=== PATIENT | male | born 1965 | race Caucasian/White ===

== ENCOUNTER 2021-12-15 09:54 | Inpatient (IN) | payer MEDICAID ==
[~2021-12-15] VITALS: Ht 170.2 cm; Wt 103.4 kg
[2021-12-15] MEDS ORDERED: SODIUM CHLORIDE 0.9% 1000ML BAG (SEPSIS BOLUS) IV SCH (10:45)
[2021-12-15] MEDS ORDERED: PIPERACILLIN/TAZ 3.375G PREMIX 50 ML IV SCH (10:45)
[2021-12-15 10:56] LABS: INR 1.1; PROTHROMBIN TIME 11.9 sec (9.6-11.0)
[2021-12-15 11:14] LABS: HEMATOCRIT. 34.4 % (42.0-52.0); HEMOGLOBIN. 10.1 g/dL (14.0-18.0); MEAN CORPUSCULAR HEMOGLOBIN 28.6 pg (28.0-32.0); MEAN CORPUSCULAR VOLUME 97.8 fL (80.0-94.0); MEAN PLATELET VOLUME 8.9 fl (7.4-10.4); PLATELET 301 x1000/uL (130-400); RED BLOOD CELL COUNT 3.51 mill/uL (4.7-6.1); RED CELL DISTRIBUTION WIDTH 14.5 % (11.6-14.6)
[2021-12-15 11:33] LABS: PLATELET ESTIMATE NORMAL
[2021-12-15 11:40] LABS: CHLORIDE 93 mEq/L (98-107)
[2021-12-15] MEDS ORDERED: INSULIN REGULAR (HUMULIN R) 300UNITS/3ML VIAL IV SCH (11:45)
[2021-12-15] MEDS ORDERED: LEVOFLOXACIN 750MG PREMIX 150 ML IV ONE (13:00)
[2021-12-15] MEDS ORDERED: DOPAMINE 400MG/250ML PREMIX 250 ML IV ONE (14:00)
[2021-12-15 14:24] LABS: CLARITY URINE CLEAR (CLEAR); COLOR URINE YELLOW (YELLOW); KETONES URINE NEGATIVE (NEGATIVE); LEUKOCYTE ESTERASE URINE NEGATIVE (NEGATIVE); NITRITE URINE NEGATIVE (NEGATIVE); OCCULT BLOOD URINE TRACE (NEGATIVE); PH URINE 5.5 (4.5-8.0); PROTEIN URINE 1+ (NEGATIVE); SPECIFIC GRAVITY URINE 1.024 (1.005-1.030); UROBILINOGEN URINE 0.2 E.U./dL (0.2-1.0)
[2021-12-15 15:20] LABS: BG BASE EXCESS -5.2 mmol/L (-2.0-2.0); BG CARBOXYHEMOGLOBIN 0.1 % (0.5-1.5); BG FRACTION INSPIRED OXYGEN 36; BG HCO3 ACT 19.5 mmol/L (22.0-26.0); BG METHEMOGLOBIN 0.2 % (0.0-1.5); BG OXYHEMOGLOBIN 92.7 % (94.0-97.0); BG PCO2 35.2 mmHg (35.0-45.0); BG PH 7.362 (7.350-7.450); BG PO2 68.1 mmHg (75.0-100.0); BG SAMPLE SITE LEFT BRACHIAL; BG TOTAL HEMOGLOBIN 10.4 g/dL (12.0-18.0); BG VENT MODE NASAL CANNULA
[2021-12-15 15:20] LABS: PHOSPHORUS 2.8 mg/dL (2.5-4.9)
[2021-12-15] MEDS ORDERED: SODIUM CHLORIDE 0.9% 500 ML IV ONE (16:15)
[2021-12-15] MEDS ORDERED: SODIUM BICARBONATE 8.4% 1 MEQ/ML 50ML SYR IV NR ×2 (16:15→16:30)
[2021-12-15] MEDS: MIDODRINE HCL 5MG TABLET PO SCH (16:25)
[2021-12-15] MEDS ORDERED: NOREPINEPHRINE 8MG/250ML PMX 250ML IV PRN (16:30)
[2021-12-15] MEDS ORDERED: TRAMADOL 50MG TABLET PO PRN (17:15)
[2021-12-15] MEDS ORDERED: MAGNESIUM/ALUMINUM HYDROXIDE/SIMETHICONE 30ML UDC PO PRN (17:15)
[2021-12-15] MEDS ORDERED: DOCUSATE SODIUM 100MG CAPSULE PO PRN (17:15)
[2021-12-15] MEDS ORDERED: ENOXAPARIN 30MG/0.3ML SYR SUBCUT SCH (18:00)
[2021-12-15] MEDS ORDERED: VANCOMYCIN 1500MG in DEXTROSE 5% WATER 250ML IV NR (18:00)
[2021-12-15] MEDS: SODIUM CHLORIDE 0.9% 1,000 ML IV SCH (18:13)
[2021-12-15] MEDS ORDERED: NALOXONE HCL 0.4MG/ML VIAL IV PRN (20:30)
[2021-12-15] MEDS ORDERED: PIPERACILLIN/TAZ 3.375G PREMIX 50 ML IV NR (20:45)
[2021-12-15] MEDS ORDERED: PIPERACILLIN/TAZOBACTAM 3.375 G in DEXTROSE 5% WATER 50 ML IV SCH (21:00)
[2021-12-15 21:24] LABS: BETA HYDROXYBUTYRATE 0.7 mMol/L (0.0-0.3)
[2021-12-15] MEDS: HYDROCODONE/ACETAMINOPHEN 5/325MG TABLET PO PRN (22:00)
[2021-12-15] MEDS ORDERED: NOREPINEPHRINE 8 MG in DEXT 5% WATER 242 ML IV PRN (23:00)
[2021-12-16] VITALS (11 sets, daily range): BP systolic 81–128; BP diastolic 47–79
[2021-12-16] MEDS ORDERED: PNEUMOCOCCAL 23-VAL P-SAC VAC 0.5 ML IM ONE (02:45)
[2021-12-16] MEDS ORDERED: DEXTROSE 50% WATER 50ML SYRINGE IV PRN (04:00)
[2021-12-16] MEDS: SODIUM CHLORIDE 0.9% 1,000 ML IV SCH ×3 (05:41→23:48)
[2021-12-16] MEDS: HYDROCODONE/ACETAMINOPHEN 5/325MG TABLET PO PRN ×2 (05:44→22:28)
[2021-12-16] MEDS ORDERED: PIPERACILLIN/TAZOBACTAM 3.375 G in DEXTROSE 5% WATER 50 ML IV SCH (06:00)
[2021-12-16 06:24] LABS: HEMOGLOBIN. 9.8 g/dL (14.0-18.0); MEAN CORPUSCULAR HEMOGLOBIN 29.4 pg (28.0-32.0); MEAN CORPUSCULAR VOLUME 89.9 fL (80.0-94.0); MEAN PLATELET VOLUME 8.7 fl (7.4-10.4); PLATELET 273 x1000/uL (130-400); RED BLOOD CELL COUNT 3.33 mill/uL (4.7-6.1)
[2021-12-16 07:48] LABS: CHLORIDE 94 mEq/L (98-107)
[2021-12-16] MEDS: BLOOD SUGAR DIAGNOSTIC STRIP TEST SCH ×4 (07:51→22:18)
[2021-12-16] MEDS: PIPERACILLIN/TAZOBACTAM 3.375G in DEXT 5% WATER 50ML IV SCH ×3 (07:51→22:17)
[2021-12-16 07:59] LABS: HDL CHOLESTEROL 10 mg/dL (40-59); LDL CHOLESTEROL 12 mg/dL (5-100)
[2021-12-16] MEDS: MIDODRINE HCL 5MG TABLET PO SCH ×3 (08:36→17:00)
[2021-12-16] MEDS: INSULIN LISPRO 100 UNITS/ML SUBCUT SCH ×4 (08:36→22:18)
[2021-12-16 08:39] LABS: BG BASE EXCESS -3.4 mmol/L (-2.0-2.0); BG CARBOXYHEMOGLOBIN 0.3 % (0.5-1.5); BG DEOXYHEMOGLOBIN 4.8 % (0.0-5.0); BG FRACTION INSPIRED OXYGEN 25; BG HCO3 ACT 20.1 mmol/L (22.0-26.0); BG METHEMOGLOBIN 0.3 % (0.0-1.5); BG OXYGEN SATURATION 95.2 % (92.0-98.5); BG OXYHEMOGLOBIN 94.6 % (94.0-97.0); BG PCO2 30.7 mmHg (35.0-45.0); BG PH 7.433 (7.350-7.450); BG PO2 77.1 mmHg (75.0-100.0); BG SAMPLE SITE LEFT BRACHIAL; BG TOTAL HEMOGLOBIN 10.1 g/dL (12.0-18.0); BG VENT MODE NASAL CANNULA
[2021-12-16] MEDS: ENOXAPARIN 40MG/0.4ML SYR SUBCUT SCH (09:45)
[2021-12-16] MEDS ORDERED: VANCOMYCIN 500MG PREMIX 100 ML IV SCH (10:00)
[2021-12-16] MEDS ORDERED: LACTULOSE 20G/30ML UDC PO NR (10:45)
[2021-12-16] MEDS ORDERED: NA PHOS,M-B/NA PHOS,DI-BA ENEMA 118ML PR NR (10:45)
[2021-12-16] MEDS ORDERED: INSULIN GLARGINE 100 UNITS/ML SUBCUT SCH (13:00)
[2021-12-16 16:41] LABS: PLATELET ESTIMATE NORMAL
[2021-12-16] MEDS ORDERED: VANCOMYCIN 750MG PMX (XELLIA) 150 ML IV SCH (18:00)
[2021-12-16 18:53] LABS: HDL CHOLESTEROL 10 mg/dL (40-59); LDL CHOLESTEROL 15 mg/dL (5-100); T4 FREE 1.44 ng/dL (0.76-1.46)
[2021-12-17] VITALS (13 sets, daily range): BP systolic 98–145; BP diastolic 26–92
[2021-12-17] MEDS: ACETAMINOPHEN 325MG TABLET PO PRN (00:37)
[2021-12-17 06:32] LABS: HEMATOCRIT 29.1 % (42.0-52.0); HEMOGLOBIN 9.3 g/dL (14.0-18.0); MEAN CORPUSCULAR HEMOGLOBIN 29.3 pg (28.0-32.0); MEAN CORPUSCULAR VOLUME 92.2 fL (80.0-94.0); PLATELET 230 x1000/uL (130-400); RED BLOOD CELL COUNT 3.16 mill/uL (4.7-6.1); RED CELL DISTRIBUTION WIDTH 14.6 % (11.6-14.6)
[2021-12-17] MEDS: INSULIN LISPRO 100 UNITS/ML SUBCUT SCH ×4 (06:40→23:03)
[2021-12-17] MEDS: BLOOD SUGAR DIAGNOSTIC STRIP TEST SCH ×4 (06:40→21:00)
[2021-12-17] MEDS: PIPERACILLIN/TAZOBACTAM 3.375G in DEXT 5% WATER 50ML IV SCH ×3 (06:40→23:05)
[2021-12-17 07:31] LABS: CHLORIDE 96 mEq/L (98-107); PHOSPHORUS 3.2 mg/dL (2.5-4.9)
[2021-12-17] MEDS: SODIUM CHLORIDE 0.9% 1,000 ML IV SCH ×2 (08:56→19:15)
[2021-12-17] MEDS: ENOXAPARIN 40MG/0.4ML SYR SUBCUT SCH (08:56)
[2021-12-17] MEDS ORDERED: SORBITOL 70% SOLN 30ML PO NR (09:00)
[2021-12-17] MEDS: HYDROCODONE/ACETAMINOPHEN 5/325MG TABLET PO PRN ×2 (09:16→14:52)
[2021-12-17] MEDS: INSULIN GLARGINE 100 UNITS/ML SUBCUT SCH (09:17)
[2021-12-17] MEDS ORDERED: POTASSIUM CHLORIDE 20MEQ TABLET SR PO NR (09:30)
[2021-12-17] MEDS ORDERED: INSULIN GLARGINE 100 UNITS/ML SUBCUT SCH (10:00)
[2021-12-17] MEDS ORDERED: HYDROMORPHONE HCL/PF 2MG/ML CPJ IV PRN ×2 (10:45→11:00)
[2021-12-17] MEDS ORDERED: GADOTERATE MEGLUMINE 5 MMOL/10 ML VIAL IV ONE (13:26)
[2021-12-17] MEDS: LACTULOSE 20G/30ML UDC PO SCH (14:47)
[2021-12-17] MEDS: DOCUSATE SODIUM 250MG CAPSULE PO SCH (14:52)
[2021-12-17] MEDS: VANCOMYCIN 1GM PMX (XELLIA) 200 ML IV SCH ×2 (14:56→23:05)
[2021-12-17 16:48] LABS: CLARITY URINE TURBID (CLEAR); COLOR URINE YELLOW (YELLOW); KETONES URINE NEGATIVE (NEGATIVE); LEUKOCYTE ESTERASE URINE NEGATIVE (NEGATIVE); NITRITE URINE NEGATIVE (NEGATIVE); OCCULT BLOOD URINE 3+ (NEGATIVE); PH URINE 5.5 (4.5-8.0); PROTEIN URINE 1+ (NEGATIVE); SPECIFIC GRAVITY URINE 1.019 (1.005-1.030); UROBILINOGEN URINE 0.2 E.U./dL (0.2-1.0)
[2021-12-17] MEDS: HYDROMORPHONE HCL/PF 2MG/ML CPJ IV PRN ×2 (17:19→23:32)
[2021-12-17] MEDS: DEXT 5%/0.45% NACL 1000ML 1,000 ML IV SCH (23:01)
[2021-12-18] VITALS (35 sets, daily range): BP systolic 59–161; BP diastolic 27–74
[2021-12-18 06:18] LABS: HEMATOCRIT. 27.1 % (42.0-52.0); MEAN CORPUSCULAR HEMOGLOBIN 29.4 pg (28.0-32.0); MEAN CORPUSCULAR VOLUME 88.9 fL (80.0-94.0); MEAN PLATELET VOLUME 8.8 fl (7.4-10.4); PLATELET 213 x1000/uL (130-400); RED BLOOD CELL COUNT 3.05 mill/uL (4.7-6.1); RED CELL DISTRIBUTION WIDTH 14.4 % (11.6-14.6)
[2021-12-18] MEDS: PIPERACILLIN/TAZOBACTAM 3.375G in DEXT 5% WATER 50ML IV SCH ×3 (06:53→20:35)
[2021-12-18] MEDS: BLOOD SUGAR DIAGNOSTIC STRIP TEST SCH ×4 (07:02→20:31)
[2021-12-18] MEDS: DOCUSATE SODIUM 250MG CAPSULE PO SCH (09:00)
[2021-12-18] MEDS: ENOXAPARIN 40MG/0.4ML SYR SUBCUT SCH (09:00)
[2021-12-18] MEDS ORDERED: LIDOCAINE HCL 2%/EPINEPHRINE 1:100,000 20 ML VIAL INFIL ONE (09:02)
[2021-12-18] MEDS ORDERED: GENTAMICIN SULF 40MG/ML 2ML VIAL ONE (09:02)
[2021-12-18] MEDS ORDERED: THROMBIN (BOVINE) 5000 UNITS/VIAL TOP ONE (09:02)
[2021-12-18] MEDS ORDERED: BACITRACIN 15GM TUBE TOP ONE (09:02)
[2021-12-18] MEDS: VANCOMYCIN 1GM PMX (XELLIA) 200 ML IV SCH (09:12)
[2021-12-18] MEDS: INSULIN GLARGINE 100 UNITS/ML SUBCUT SCH (09:19)
[2021-12-18] MEDS: INSULIN LISPRO 100 UNITS/ML SUBCUT SCH ×4 (09:41→20:35)
[2021-12-18] MEDS: HYDROMORPHONE HCL/PF 2MG/ML CPJ IV PRN (11:42)
[2021-12-18] MEDS ORDERED: HYDROMORPHONE HCL/PF 2MG/ML CPJ IV SCH (11:45)
[2021-12-18] MEDS: LACTULOSE 20G/30ML UDC PO SCH (12:04)
[2021-12-18] MEDS: DEXT 5%/0.45% NACL 1000ML 1,000 ML IV SCH ×2 (12:09→16:20)
[2021-12-18] MEDS ORDERED: GLYCOPYRROLATE 0.2 MG/ML 2ML VIAL ONE ×2 (13:00)
[2021-12-18] MEDS ORDERED: ETOMIDATE 2MG/ML 10ML VIAL IV ONE (13:00)
[2021-12-18] MEDS ORDERED: CEFAZOLIN SODIUM 1000MG/VIAL ONE ×2 (13:00→13:06)
[2021-12-18] MEDS ORDERED: DEXAMETHASONE 4MG/ML 1ML VIAL ONE (13:00)
[2021-12-18] MEDS ORDERED: LIDOCAINE HCL 1% 10 MG/ML 10ML VIAL ONE (13:00)
[2021-12-18] MEDS ORDERED: ROCURONIUM BROMIDE 10MG/ML VIAL 5ML IV ONE (13:00)
[2021-12-18] MEDS ORDERED: NEOSTIGMINE METHYLSULFATE 1MG/ML 10 ML VIAL ONE (13:00)
[2021-12-18] MEDS ORDERED: ONDANSETRON HCL 4MG/2ML INJ ONE (13:00)
[2021-12-18] MEDS ORDERED: MIDAZOLAM HCL 2 MG/2 ML VIAL ONE (13:01)
[2021-12-18] MEDS ORDERED: FENTANYL CITRATE/PF 50MCG/ML 2ML VIAL ONE (13:01)
[2021-12-18] MEDS ORDERED: PHENYLEPHRINE HCL 10 MG/ML 1ML (IV VIAL) IV ONE (13:56)
[2021-12-18] MEDS ORDERED: SODIUM CHLORIDE 0.9% 1,000 ML IV ONE (14:00)
[2021-12-18] MEDS ORDERED: TRAMADOL 50MG TABLET PO PRN (14:00)
[2021-12-18] MEDS ORDERED: HYDROMORPHONE HCL/PF 2MG/ML CPJ ONE (14:14)
[2021-12-18] MEDS ORDERED: NICARDIPINE 100 MG in SODIUM CHLORIDE 0.9% 60 ML IV PRN (16:15)
[2021-12-18] MEDS: MORPHINE SULFATE 2 MG/ML CPJ (NOT FOR IM USE) IV PRN (16:30)
[2021-12-18 16:31] LABS: BG BASE EXCESS -5.7 mmol/L (-2.0-2.0); BG CARBOXYHEMOGLOBIN 0.3 % (0.5-1.5); BG DEOXYHEMOGLOBIN 1.2 % (0.0-5.0); BG HCO3 ACT 22.1 mmol/L (22.0-26.0); BG METHEMOGLOBIN 0.4 % (0.0-1.5); BG OXYGEN SATURATION 98.8 % (92.0-98.5); BG OXYHEMOGLOBIN 98.1 % (94.0-97.0); BG PCO2 55.6 mmHg (35.0-45.0); BG PH 7.218 (7.350-7.450); BG PO2 201.8 mmHg (75.0-100.0); BG SAMPLE SITE RIGHT RADIAL; BG TOTAL HEMOGLOBIN 9.7 g/dL (12.0-18.0); BG VENT MODE VENT - AC
[2021-12-18] MEDS: PROPOFOL 10MG/ML 100ML 100 ML IV PRN (17:44)
[2021-12-18 20:17] LABS: BG BASE EXCESS -3.9 mmol/L (-2.0-2.0); BG CARBOXYHEMOGLOBIN 0.1 % (0.5-1.5); BG DEOXYHEMOGLOBIN 0.8 % (0.0-5.0); BG FRACTION INSPIRED OXYGEN 70; BG HCO3 ACT 20.8 mmol/L (22.0-26.0); BG METHEMOGLOBIN 0.2 % (0.0-1.5); BG OXYGEN SATURATION 99.2 % (92.0-98.5); BG OXYHEMOGLOBIN 98.9 % (94.0-97.0); BG PCO2 35.5 mmHg (35.0-45.0); BG PH 7.385 (7.350-7.450); BG SAMPLE SITE RIGHT RADIAL; BG TOTAL HEMOGLOBIN 7.5 g/dL (12.0-18.0); BG TOTAL RESPIRATORY RATE 19 b/min; BG VENT MODE VENT - AC
[2021-12-18] MEDS: ENOXAPARIN 30MG/0.3ML SYR SUBCUT SCH (20:34)
[2021-12-18] MEDS: VANCOMYCIN 750MG PMX (XELLIA) 150 ML IV SCH (22:08)
[2021-12-19] VITALS (94 sets, daily range): BP systolic 65–175; BP diastolic 34–95
[2021-12-19] MEDS: PROPOFOL 10MG/ML 100ML 100 ML IV PRN ×2 (01:11→07:37)
[2021-12-19 05:01] LABS: HEMATOCRIT. 24.1 % (42.0-52.0); HEMOGLOBIN. 7.9 g/dL (14.0-18.0); MEAN CORPUSCULAR HEMOGLOBIN 29.8 pg (28.0-32.0); MEAN CORPUSCULAR VOLUME 90.6 fL (80.0-94.0); MEAN PLATELET VOLUME 9.4 fl (7.4-10.4); PLATELET 201 x1000/uL (130-400); RED BLOOD CELL COUNT 2.66 mill/uL (4.7-6.1)
[2021-12-19] MEDS: PIPERACILLIN/TAZOBACTAM 3.375G in DEXT 5% WATER 50ML IV SCH ×3 (05:19→21:46)
[2021-12-19] MEDS: BLOOD SUGAR DIAGNOSTIC STRIP TEST SCH ×4 (05:32→21:42)
[2021-12-19] MEDS: INSULIN LISPRO 100 UNITS/ML SUBCUT SCH ×4 (05:36→21:47)
[2021-12-19] MEDS: PANTOPRAZOLE 40MG DR TABLET PO SCH (05:40)
[2021-12-19] MEDS: DEXT 5%/0.45% NACL 1000ML 1,000 ML IV SCH (07:03)
[2021-12-19] MEDS: DOCUSATE SODIUM 250MG CAPSULE PO SCH (08:40)
[2021-12-19] MEDS: MORPHINE SULFATE 2 MG/ML CPJ (NOT FOR IM USE) IV PRN ×2 (08:54→15:31)
[2021-12-19] MEDS: ENOXAPARIN 30MG/0.3ML SYR SUBCUT SCH ×2 (09:00→21:00)
[2021-12-19 09:36] LABS: PLATELET ESTIMATE NORMAL
[2021-12-19 10:18] LABS: BG BASE EXCESS -4.5 mmol/L (-2.0-2.0); BG CARBOXYHEMOGLOBIN 0.7 % (0.5-1.5); BG DEOXYHEMOGLOBIN 5.4 % (0.0-5.0); BG FRACTION INSPIRED OXYGEN 40; BG HCO3 ACT 19.4 mmol/L (22.0-26.0); BG METHEMOGLOBIN 0.2 % (0.0-1.5); BG OXYGEN SATURATION 94.6 % (92.0-98.5); BG OXYHEMOGLOBIN 93.7 % (94.0-97.0); BG PCO2 30.8 mmHg (35.0-45.0); BG PH 7.416 (7.350-7.450); BG PO2 68.8 mmHg (75.0-100.0); BG SAMPLE SITE RIGHT RADIAL; BG TOTAL HEMOGLOBIN 9.1 g/dL (12.0-18.0); BG VENT MODE VENT - CPAP
[2021-12-19] MEDS ORDERED: FENTANYL CITRATE/PF 2,500 MCG in SODIUM CHLORIDE 0.9% 200 ML IV PRN (10:30)
[2021-12-19] MEDS ORDERED: FENTANYL 2500MCG/250ML PMX 250 ML IV PRN (10:45)
[2021-12-19] MEDS ORDERED: DEXT 5%/0.9% NACL 1,000 ML IV SCH (11:00)
[2021-12-19] MEDS: LACTULOSE 20G/30ML UDC PO SCH (11:41)
[2021-12-19] MEDS: VANCOMYCIN 750MG PMX (XELLIA) 150 ML IV SCH ×2 (11:52→22:41)
[2021-12-19] MEDS: INSULIN GLARGINE 100 UNITS/ML SUBCUT SCH (11:52)
[2021-12-19 12:16] LABS: BG BASE EXCESS -7.8 mmol/L (-2.0-2.0); BG CARBOXYHEMOGLOBIN 0.3 % (0.5-1.5); BG DEOXYHEMOGLOBIN 0.7 % (0.0-5.0); BG FRACTION INSPIRED OXYGEN 100; BG HCO3 ACT 17.3 mmol/L (22.0-26.0); BG METHEMOGLOBIN 0.5 % (0.0-1.5); BG OXYGEN SATURATION 99.3 % (92.0-98.5); BG OXYHEMOGLOBIN 98.5 % (94.0-97.0); BG PCO2 33.2 mmHg (35.0-45.0); BG PH 7.334 (7.350-7.450); BG PO2 243.7 mmHg (75.0-100.0); BG SAMPLE SITE RIGHT RADIAL; BG TOTAL HEMOGLOBIN 8.1 g/dL (12.0-18.0); BG VENT MODE VENT - AC
[2021-12-19 14:02] LABS: BG BASE EXCESS -8.8 mmol/L (-2.0-2.0); BG CARBOXYHEMOGLOBIN 0.3 % (0.5-1.5); BG FRACTION INSPIRED OXYGEN 40; BG HCO3 ACT 15.4 mmol/L (22.0-26.0); BG METHEMOGLOBIN 0.2 % (0.0-1.5); BG OXYGEN SATURATION 87.9 % (92.0-98.5); BG OXYHEMOGLOBIN 87.5 % (94.0-97.0); BG PCO2 27.4 mmHg (35.0-45.0); BG PH 7.368 (7.350-7.450); BG PO2 58.5 mmHg (75.0-100.0); BG SAMPLE SITE RIGHT RADIAL; BG TOTAL RESPIRATORY RATE 33 b/min; BG VENT MODE VENT - CPAP
[2021-12-20] VITALS (92 sets, daily range): BP systolic 71–165; BP diastolic 30–97
[2021-12-20] MEDS: MORPHINE SULFATE 2 MG/ML CPJ (NOT FOR IM USE) IV PRN ×4 (00:10→20:30)
[2021-12-20 00:45] LABS: PLATELET ESTIMATE NORMAL
[2021-12-20 04:53] LABS: BASOPHILS % 0.2 % (0.0-2.0); EOSINOPHILS % 0.6 % (0.0-5.0); HEMOGLOBIN. 8.9 g/dL (14.0-18.0); LYMPHOCYTES % 4.8 % (20.0-50.0); MEAN CORPUSCULAR HEMOGLOBIN 29.6 pg (28.0-32.0); MEAN CORPUSCULAR VOLUME 90.2 fL (80.0-94.0); MEAN PLATELET VOLUME 8.7 fl (7.4-10.4); MONOCYTES % 4.8 % (2.0-8.0); NEUTROPHILS % 89.6 % (40.0-76.0); PLATELET 264 x1000/uL (130-400); RED CELL DISTRIBUTION WIDTH 14.9 % (11.6-14.6)
[2021-12-20 05:00] LABS: CHLORIDE 111 mEq/L (98-107)
[2021-12-20] MEDS: PIPERACILLIN/TAZOBACTAM 3.375G in DEXT 5% WATER 50ML IV SCH ×3 (05:03→22:03)
[2021-12-20] MEDS: PANTOPRAZOLE 40MG DR TABLET PO SCH (05:04)
[2021-12-20] MEDS: BLOOD SUGAR DIAGNOSTIC STRIP TEST SCH ×4 (06:26→20:28)
[2021-12-20] MEDS: INSULIN LISPRO 100 UNITS/ML SUBCUT SCH ×5 (06:27→20:37)
[2021-12-20 07:52] LABS: BG BASE EXCESS -0.5 mmol/L (-2.0-2.0); BG CARBOXYHEMOGLOBIN 0.3 % (0.5-1.5); BG DEOXYHEMOGLOBIN 1.1 % (0.0-5.0); BG HCO3 ACT 23.6 mmol/L (22.0-26.0); BG METHEMOGLOBIN 0.3 % (0.0-1.5); BG OXYGEN SATURATION 98.9 % (92.0-98.5); BG OXYHEMOGLOBIN 98.3 % (94.0-97.0); BG PCO2 36.3 mmHg (35.0-45.0); BG PH 7.431 (7.350-7.450); BG PO2 193.5 mmHg (75.0-100.0); BG SAMPLE SITE LEFT RADIAL; BG TOTAL HEMOGLOBIN 8.8 g/dL (12.0-18.0); BG VENT MODE MASK - NRB
[2021-12-20] MEDS ORDERED: LIDOCAINE HCL 1% 30ML VIAL (10MG/ML) ONE (07:53)
[2021-12-20] MEDS ORDERED: BISACODYL 10MG SUPP PR SCH (09:00)
[2021-12-20] MEDS: ENOXAPARIN 30MG/0.3ML SYR SUBCUT SCH ×2 (09:07→20:29)
[2021-12-20] MEDS: DOCUSATE SODIUM 250MG CAPSULE PO SCH (09:08)
[2021-12-20] MEDS: INSULIN GLARGINE 100 UNITS/ML SUBCUT SCH (09:10)
[2021-12-20] MEDS ORDERED: THROAT LOZENGES-BENZOCAINE/MENTH/CETYLPYRD CL LOZENGES MM PRN ×2 (10:15→11:00)
[2021-12-20] MEDS: VANCOMYCIN 750MG PMX (XELLIA) 150 ML IV SCH ×2 (11:20→22:43)
[2021-12-20] MEDS: LACTULOSE 20G/30ML UDC PO SCH ×2 (11:20→11:32)
[2021-12-20] MEDS: AMLODIPINE 5MG TABLET PO SCH (11:20)
[2021-12-20] MEDS: HYDROCODONE/ACETAMINOPHEN 5/325MG TABLET PO PRN (14:26)
[2021-12-20] MEDS: GUAIFENESIN 200MG/10ML SUGAR FREE UDC PO PRN (16:00)
[2021-12-20] MEDS: HYDROMORPHONE HCL/PF 2MG/ML CPJ IV PRN (22:44)
[2021-12-21] VITALS (92 sets, daily range): BP systolic 87–138; BP diastolic 23–84
[2021-12-21] MEDS: HYDROMORPHONE HCL/PF 2MG/ML CPJ IV PRN ×5 (02:05→22:58)
[2021-12-21] MEDS: PIPERACILLIN/TAZOBACTAM 3.375G in DEXT 5% WATER 50ML IV SCH ×3 (05:12→21:18)
[2021-12-21] MEDS: PANTOPRAZOLE 40MG DR TABLET PO SCH (05:47)
[2021-12-21] MEDS: BLOOD SUGAR DIAGNOSTIC STRIP TEST SCH ×4 (05:47→21:14)
[2021-12-21 05:54] LABS: HEMATOCRIT. 21.6 % (42.0-52.0); HEMOGLOBIN. 7.1 g/dL (14.0-18.0); MEAN CORPUSCULAR HEMOGLOBIN 29.6 pg (28.0-32.0); MEAN CORPUSCULAR VOLUME 90.6 fL (80.0-94.0); MEAN PLATELET VOLUME 9.3 fl (7.4-10.4); PLATELET 239 x1000/uL (130-400); RED BLOOD CELL COUNT 2.39 mill/uL (4.7-6.1); RED CELL DISTRIBUTION WIDTH 14.4 % (11.6-14.6)
[2021-12-21 05:55] LABS: CHLORIDE 102 mEq/L (98-107)
[2021-12-21] MEDS: INSULIN LISPRO 100 UNITS/ML SUBCUT SCH ×4 (06:12→21:19)
[2021-12-21 07:41] LABS: BG BASE EXCESS -1.7 mmol/L (-2.0-2.0); BG CARBOXYHEMOGLOBIN 0.7 % (0.5-1.5); BG DEOXYHEMOGLOBIN 4.2 % (0.0-5.0); BG HCO3 ACT 22.8 mmol/L (22.0-26.0); BG METHEMOGLOBIN 0.3 % (0.0-1.5); BG OXYGEN SATURATION 95.8 % (92.0-98.5); BG OXYHEMOGLOBIN 94.8 % (94.0-97.0); BG PCO2 37.8 mmHg (35.0-45.0); BG PH 7.399 (7.350-7.450); BG PO2 84.4 mmHg (75.0-100.0); BG SAMPLE SITE LEFT RADIAL; BG VENT MODE NASAL CANNULA
[2021-12-21] MEDS ORDERED: POTASSIUM CHLORIDE 20MEQ TABLET SR PO SCH (08:00)
[2021-12-21 08:08] LABS: PLATELET ESTIMATE NORMAL
[2021-12-21] MEDS: ENOXAPARIN 30MG/0.3ML SYR SUBCUT SCH (08:52)
[2021-12-21] MEDS: AMLODIPINE 5MG TABLET PO SCH (08:52)
[2021-12-21] MEDS: DOCUSATE SODIUM 250MG CAPSULE PO SCH (08:55)
[2021-12-21] MEDS: INSULIN GLARGINE 100 UNITS/ML SUBCUT SCH (09:00)
[2021-12-21] MEDS ORDERED: LIDOCAINE HCL/PF 1% 2ML VIAL ONE (09:00)
[2021-12-21] MEDS: VANCOMYCIN 750MG PMX (XELLIA) 150 ML IV SCH ×2 (11:41→22:57)
[2021-12-21] MEDS: POLYETHYLENE GLYCOL 3350 (17GM) 1 DOSE PACK PO SCH (11:42)
[2021-12-21] MEDS: LACTULOSE 20G/30ML UDC PO SCH (11:52)
[2021-12-22] VITALS (39 sets, daily range): BP systolic 87–142; BP diastolic 43–92
[2021-12-22] MEDS: HYDROMORPHONE HCL/PF 2MG/ML CPJ IV PRN ×3 (04:09→22:47)
[2021-12-22 05:29] LABS: HEMATOCRIT. 21.5 % (42.0-52.0); HEMOGLOBIN. 7.1 g/dL (14.0-18.0); MEAN CORPUSCULAR HEMOGLOBIN 29.4 pg (28.0-32.0); MEAN CORPUSCULAR VOLUME 89.3 fL (80.0-94.0); MEAN PLATELET VOLUME 9.5 fl (7.4-10.4); PLATELET 256 x1000/uL (130-400); RED BLOOD CELL COUNT 2.41 mill/uL (4.7-6.1); RED CELL DISTRIBUTION WIDTH 14.3 % (11.6-14.6)
[2021-12-22 05:46] LABS: PHOSPHORUS 3.6 mg/dL (2.5-4.9)
[2021-12-22] MEDS: BLOOD SUGAR DIAGNOSTIC STRIP TEST SCH ×4 (06:12→21:00)
[2021-12-22] MEDS: PIPERACILLIN/TAZOBACTAM 3.375G in DEXT 5% WATER 50ML IV SCH ×2 (06:12→13:54)
[2021-12-22] MEDS: PANTOPRAZOLE 40MG DR TABLET PO SCH (06:12)
[2021-12-22] MEDS: INSULIN LISPRO 100 UNITS/ML SUBCUT SCH ×4 (06:13→22:36)
[2021-12-22 07:23] LABS: PLATELET ESTIMATE NORMAL
[2021-12-22] MEDS: DOCUSATE SODIUM 250MG CAPSULE PO SCH (08:00)
[2021-12-22] MEDS: AMLODIPINE 5MG TABLET PO SCH (08:00)
[2021-12-22] MEDS: POLYETHYLENE GLYCOL 3350 (17GM) 1 DOSE PACK PO SCH (08:00)
[2021-12-22] MEDS: VANCOMYCIN 750MG PMX (XELLIA) 150 ML IV SCH (10:11)
[2021-12-22] MEDS: INSULIN GLARGINE 100 UNITS/ML SUBCUT SCH (10:11)
[2021-12-22] MEDS ORDERED: NALOXONE HCL 0.4MG/ML VIAL IV PRN (10:15)
[2021-12-22] MEDS: SODIUM CHLORIDE 0.9% 1,000 ML IV SCH ×2 (12:29→22:32)
[2021-12-22] MEDS: GUAIFENESIN 200MG/10ML SUGAR FREE UDC PO PRN (13:52)
[2021-12-22 15:25] LABS: HEMATOCRIT. 23.1 % (42.0-52.0); HEMOGLOBIN. 7.5 g/dL (14.0-18.0); MEAN CORPUSCULAR HEMOGLOBIN 29.5 pg (28.0-32.0); MEAN CORPUSCULAR VOLUME 90.8 fL (80.0-94.0); PLATELET 298 x1000/uL (130-400); RED BLOOD CELL COUNT 2.54 mill/uL (4.7-6.1); RED CELL DISTRIBUTION WIDTH 14.6 % (11.6-14.6)
[2021-12-22] MEDS: MORPHINE SULFATE 2 MG/ML CPJ (NOT FOR IM USE) IV PRN (15:29)
[2021-12-22 15:48] LABS: PLATELET ESTIMATE NORMAL
[2021-12-22] MEDS: CEFAZOLIN 2,000 MG in DEXT 5% WATER 100 ML IV SCH (16:55)
[2021-12-22] MEDS ORDERED: METRONIDAZOLE 500 MG PREMIX 100 ML IV SCH (20:00)
[2021-12-22] MEDS: METRONIDAZOLE 500 MG PREMIX 100 ML IV SCH (22:31)
[2021-12-22] MEDS: ONDANSETRON HCL 4MG/2ML INJ IV PRN (22:46)
[2021-12-22 23:39] LABS: HEMATOCRIT. 21.7 % (42.0-52.0); HEMOGLOBIN. 7.1 g/dL (14.0-18.0); MEAN CORPUSCULAR HEMOGLOBIN 29.4 pg (28.0-32.0); MEAN CORPUSCULAR VOLUME 90.3 fL (80.0-94.0); PLATELET 314 x1000/uL (130-400); RED CELL DISTRIBUTION WIDTH 14.2 % (11.6-14.6)
[2021-12-23] VITALS (21 sets, daily range): BP systolic 78–142; BP diastolic 43–83
[2021-12-23] MEDS: CEFAZOLIN 2,000 MG in DEXT 5% WATER 100 ML IV SCH ×3 (01:27→16:27)
[2021-12-23 02:32] LABS: PLATELET ESTIMATE NORMAL
[2021-12-23] MEDS: METRONIDAZOLE 500 MG PREMIX 100 ML IV SCH ×3 (06:58→22:38)
[2021-12-23] MEDS: HYDROMORPHONE HCL/PF 2MG/ML CPJ IV PRN ×2 (06:58→23:32)
[2021-12-23] MEDS: PANTOPRAZOLE 40MG DR TABLET PO SCH (06:58)
[2021-12-23] MEDS: ONDANSETRON HCL 4MG/2ML INJ IV PRN (06:58)
[2021-12-23] MEDS: BLOOD SUGAR DIAGNOSTIC STRIP TEST SCH ×4 (06:59→22:40)
[2021-12-23] MEDS: INSULIN GLARGINE 100 UNITS/ML SUBCUT SCH (08:36)
[2021-12-23] MEDS: POLYETHYLENE GLYCOL 3350 (17GM) 1 DOSE PACK PO SCH (08:37)
[2021-12-23] MEDS: INSULIN LISPRO 100 UNITS/ML SUBCUT SCH ×4 (08:37→22:41)
[2021-12-23] MEDS: DOCUSATE SODIUM 250MG CAPSULE PO SCH (08:37)
[2021-12-23] MEDS: HYDROCODONE/ACETAMINOPHEN 10/325MG TABLET PO PRN (12:47)
[2021-12-23 13:02] LABS: MEAN CORPUSCULAR HEMOGLOBIN 29.2 pg (28.0-32.0); MEAN CORPUSCULAR VOLUME 89.5 fL (80.0-94.0); MEAN PLATELET VOLUME 8.4 fl (7.4-10.4); PLATELET 378 x1000/uL (130-400); RED BLOOD CELL COUNT 2.29 mill/uL (4.7-6.1); RED CELL DISTRIBUTION WIDTH 14.2 % (11.6-14.6)
[2021-12-23 13:17] LABS: HEMATOCRIT. 20.5 % (42.0-52.0); HEMOGLOBIN. 6.7 g/dL (14.0-18.0)
[2021-12-23 14:12] LABS: PLATELET ESTIMATE NORMAL
[2021-12-23] MEDS: SODIUM CHLORIDE 0.9% 1,000 ML IV SCH (14:36)
[2021-12-23] MEDS: GABAPENTIN 300MG CAPSULE PO SCH ×2 (14:36→22:38)
[2021-12-23] MEDS ORDERED: LACTULOSE 20G/30ML UDC PO NR (19:45)
[2021-12-23] MEDS: BISACODYL 10MG SUPP PR NR ×3 (20:00→22:44)
[2021-12-24] VITALS (19 sets, daily range): BP systolic 88–143; BP diastolic 32–76
[2021-12-24] MEDS: CEFAZOLIN 2,000 MG in DEXT 5% WATER 100 ML IV SCH ×3 (00:32→15:59)
[2021-12-24] MEDS: INSULIN LISPRO 100 UNITS/ML SUBCUT SCH ×4 (07:21→21:56)
[2021-12-24] MEDS: SODIUM CHLORIDE 0.9% 1,000 ML IV SCH ×2 (07:21→14:04)
[2021-12-24] MEDS: METRONIDAZOLE 500 MG PREMIX 100 ML IV SCH ×3 (07:21→21:52)
[2021-12-24] MEDS: PANTOPRAZOLE 40MG DR TABLET PO SCH (07:22)
[2021-12-24] MEDS: GABAPENTIN 300MG CAPSULE PO SCH ×3 (07:22→21:53)
[2021-12-24] MEDS: BLOOD SUGAR DIAGNOSTIC STRIP TEST SCH ×4 (07:23→21:52)
[2021-12-24] MEDS: DOCUSATE SODIUM 250MG CAPSULE PO SCH (09:00)
[2021-12-24] MEDS: INSULIN GLARGINE 100 UNITS/ML SUBCUT SCH (10:09)
[2021-12-24] MEDS: POLYETHYLENE GLYCOL 3350 (17GM) 1 DOSE PACK PO SCH (10:09)
[2021-12-24 10:22] LABS: HEMOGLOBIN. 8.1 g/dL (14.0-18.0); MEAN CORPUSCULAR HEMOGLOBIN 29.1 pg (28.0-32.0); MEAN CORPUSCULAR VOLUME 90.1 fL (80.0-94.0); MEAN PLATELET VOLUME 8.2 fl (7.4-10.4); PLATELET 370 x1000/uL (130-400); RED BLOOD CELL COUNT 2.77 mill/uL (4.7-6.1); RED CELL DISTRIBUTION WIDTH 14.4 % (11.6-14.6)
[2021-12-24] MEDS ORDERED: POTASSIUM CHLORIDE 20MEQ/PACKET PO NR (11:30)
[2021-12-24] MEDS: HYDROMORPHONE HCL/PF 2MG/ML CPJ IV PRN ×2 (12:49→21:55)
[2021-12-24] MEDS ORDERED: BISACODYL 10MG SUPP PR NR (13:30)
[2021-12-24 17:34] LABS: PLATELET ESTIMATE NORMAL
[2021-12-24] MEDS: HYDROCODONE/ACETAMINOPHEN 10/325MG TABLET PO PRN (18:42)
[2021-12-24] MEDS ORDERED: LACTULOSE 20G/30ML UDC PO NR (19:09)
[2021-12-25] VITALS (12 sets, daily range): BP systolic 97–146; BP diastolic 30–93
[2021-12-25] MEDS: CEFAZOLIN 2,000 MG in DEXT 5% WATER 100 ML IV SCH ×4 (00:23→23:59)
[2021-12-25] MEDS: BLOOD SUGAR DIAGNOSTIC STRIP TEST SCH ×4 (07:31→21:31)
[2021-12-25] MEDS: METRONIDAZOLE 500 MG PREMIX 100 ML IV SCH ×3 (07:41→21:31)
[2021-12-25] MEDS: SODIUM CHLORIDE 0.9% 1,000 ML IV SCH (07:41)
[2021-12-25] MEDS: GABAPENTIN 300MG CAPSULE PO SCH ×3 (07:41→21:31)
[2021-12-25] MEDS: PANTOPRAZOLE 40MG DR TABLET PO SCH (07:45)
[2021-12-25] MEDS: INSULIN LISPRO 100 UNITS/ML SUBCUT SCH ×4 (07:50→21:39)
[2021-12-25] MEDS: DOCUSATE SODIUM 250MG CAPSULE PO SCH (09:25)
[2021-12-25] MEDS: POLYETHYLENE GLYCOL 3350 (17GM) 1 DOSE PACK PO SCH (09:25)
[2021-12-25 09:52] LABS: HEMATOCRIT 28.4 % (42.0-52.0); HEMOGLOBIN 9.3 g/dL (14.0-18.0); MEAN CORPUSCULAR HEMOGLOBIN 29.3 pg (28.0-32.0); MEAN CORPUSCULAR VOLUME 89.7 fL (80.0-94.0); PLATELET 483 x1000/uL (130-400); RED BLOOD CELL COUNT 3.16 mill/uL (4.7-6.1); RED CELL DISTRIBUTION WIDTH 14.6 % (11.6-14.6)
[2021-12-25] MEDS: POTASSIUM CHLORIDE 20MEQ/PACKET PO SCH ×2 (10:39→16:45)
[2021-12-25] MEDS: INSULIN GLARGINE 100 UNITS/ML SUBCUT SCH (10:40)
[2021-12-25] MEDS: FUROSEMIDE 40MG/4ML VIAL IVP SCH (10:40)
[2021-12-25] MEDS: CITRIC ACID/SODIUM CITRATE SOLN 30ML UDC PO SCH ×2 (13:02→16:45)
[2021-12-25] MEDS: HYDROMORPHONE HCL/PF 2MG/ML CPJ IV PRN (16:45)
[2021-12-26] VITALS (13 sets, daily range): BP systolic 104–149; BP diastolic 29–71
[2021-12-26 06:46] LABS: HEMATOCRIT. 24.8 % (42.0-52.0); HEMOGLOBIN. 8.4 g/dL (14.0-18.0); MEAN CORPUSCULAR VOLUME 87.8 fL (80.0-94.0); MEAN PLATELET VOLUME 8.2 fl (7.4-10.4); PLATELET 514 x1000/uL (130-400); RED BLOOD CELL COUNT 2.82 mill/uL (4.7-6.1); RED CELL DISTRIBUTION WIDTH 14.1 % (11.6-14.6)
[2021-12-26] MEDS: GABAPENTIN 300MG CAPSULE PO SCH ×3 (06:54→21:14)
[2021-12-26] MEDS: METRONIDAZOLE 500 MG PREMIX 100 ML IV SCH ×3 (06:54→21:14)
[2021-12-26] MEDS: BLOOD SUGAR DIAGNOSTIC STRIP TEST SCH ×4 (06:54→21:14)
[2021-12-26] MEDS: PANTOPRAZOLE 40MG DR TABLET PO SCH (06:55)
[2021-12-26] MEDS ORDERED: POTASSIUM CHLORIDE 20MEQ/PACKET PO ONE (08:45)
[2021-12-26] MEDS: DOCUSATE SODIUM 250MG CAPSULE PO SCH (09:00)
[2021-12-26] MEDS: POLYETHYLENE GLYCOL 3350 (17GM) 1 DOSE PACK PO SCH (09:00)
[2021-12-26 09:04] LABS: BG BASE EXCESS -6.6 mmol/L (-2.0-2.0); BG CARBOXYHEMOGLOBIN 0.3 % (0.5-1.5); BG DEOXYHEMOGLOBIN 5.3 % (0.0-5.0); BG FRACTION INSPIRED OXYGEN 21; BG HCO3 ACT 16.9 mmol/L (22.0-26.0); BG METHEMOGLOBIN 0.2 % (0.0-1.5); BG OXYGEN SATURATION 94.7 % (92.0-98.5); BG OXYHEMOGLOBIN 94.2 % (94.0-97.0); BG PCO2 26.9 mmHg (35.0-45.0); BG PH 7.417 (7.350-7.450); BG PO2 78.6 mmHg (75.0-100.0); BG SAMPLE SITE LEFT BRACHIAL; BG TOTAL HEMOGLOBIN 9.1 g/dL (12.0-18.0); BG VENT MODE ROOM AIR
[2021-12-26] MEDS: CITRIC ACID/SODIUM CITRATE SOLN 30ML UDC PO SCH ×3 (09:31→16:36)
[2021-12-26] MEDS: CEFAZOLIN 2,000 MG in DEXT 5% WATER 100 ML IV SCH ×3 (09:31→23:18)
[2021-12-26] MEDS: INSULIN LISPRO 100 UNITS/ML SUBCUT SCH ×4 (09:31→21:15)
[2021-12-26] MEDS: FUROSEMIDE 40MG/4ML VIAL IVP SCH (09:31)
[2021-12-26] MEDS: POTASSIUM CHLORIDE 20MEQ/PACKET PO SCH ×2 (09:31→16:36)
[2021-12-26] MEDS ORDERED: KCL 20MEQ/100ML PREMIX 100 ML IV NR (10:00)
[2021-12-26] MEDS ORDERED: INSULIN GLARGINE 100 UNITS/ML SUBCUT SCH (10:00)
[2021-12-26] MEDS: HYDROMORPHONE HCL/PF 2MG/ML CPJ IV PRN ×2 (11:21→18:15)
[2021-12-26 11:42] LABS: PLATELET ESTIMATE INCREASED
[2021-12-26] MEDS: SPIRONOLACTONE 25MG TABLET PO SCH (12:41)
[2021-12-26] MEDS ORDERED: KCL 10MEQ/50ML PREMIX 50 ML IV NR (13:00)
[2021-12-27] VITALS (11 sets, daily range): BP systolic 93–150; BP diastolic 50–91
[2021-12-27] MEDS: HYDROMORPHONE HCL/PF 2MG/ML CPJ IV PRN ×4 (00:28→16:59)
[2021-12-27 04:52] LABS: CHLORIDE 109 mEq/L (98-107)
[2021-12-27 05:00] LABS: HEMATOCRIT 23.4 % (42.0-52.0); HEMOGLOBIN 7.7 g/dL (14.0-18.0); MEAN CORPUSCULAR HEMOGLOBIN 29.6 pg (28.0-32.0); MEAN CORPUSCULAR VOLUME 89.4 fL (80.0-94.0); PHOSPHORUS 3.2 mg/dL (2.5-4.9); PLATELET 423 x1000/uL (130-400); RED BLOOD CELL COUNT 2.61 mill/uL (4.7-6.1); RED CELL DISTRIBUTION WIDTH 14.4 % (11.6-14.6)
[2021-12-27] MEDS: GABAPENTIN 300MG CAPSULE PO SCH ×3 (05:05→21:52)
[2021-12-27] MEDS: METRONIDAZOLE 500 MG PREMIX 100 ML IV SCH ×3 (05:05→21:52)
[2021-12-27] MEDS: BLOOD SUGAR DIAGNOSTIC STRIP TEST SCH ×4 (07:45→21:58)
[2021-12-27] MEDS ORDERED: POTASSIUM CHLORIDE INJ 20 MEQ in DEXT 5% WATER 250 ML IV ONE (08:15)
[2021-12-27] MEDS: POLYETHYLENE GLYCOL 3350 (17GM) 1 DOSE PACK PO SCH (09:00)
[2021-12-27] MEDS: DOCUSATE SODIUM 250MG CAPSULE PO SCH (09:21)
[2021-12-27] MEDS: SPIRONOLACTONE 25MG TABLET PO SCH ×2 (09:21→18:02)
[2021-12-27] MEDS: PANTOPRAZOLE 40MG DR TABLET PO SCH (09:21)
[2021-12-27] MEDS: POTASSIUM CHLORIDE 20MEQ TABLET SR PO SCH (09:22)
[2021-12-27] MEDS: CITRIC ACID/SODIUM CITRATE SOLN 30ML UDC PO SCH (09:22)
[2021-12-27] MEDS: CEFAZOLIN 2,000 MG in DEXT 5% WATER 100 ML IV SCH ×2 (09:22→16:59)
[2021-12-27] MEDS: INSULIN LISPRO 100 UNITS/ML SUBCUT SCH ×4 (09:23→22:10)
[2021-12-27] MEDS: FUROSEMIDE 40MG/4ML VIAL IVP SCH (09:23)
[2021-12-27] MEDS ORDERED: KCL 20MEQ/100ML PREMIX 100 ML IV NR ×2 (10:00→17:00)
[2021-12-27] MEDS: INSULIN GLARGINE 100 UNITS/ML SUBCUT SCH (11:56)
[2021-12-27] MEDS ORDERED: MAGNESIUM 2 G PREMIX 50 ML IV NR (13:30)
[2021-12-27] MEDS: GUAIFENESIN 200MG/10ML SUGAR FREE UDC PO PRN (19:36)
[2021-12-28] VITALS (11 sets, daily range): BP systolic 114–143; BP diastolic 57–78
[2021-12-28] MEDS: CEFAZOLIN 2,000 MG in DEXT 5% WATER 100 ML IV SCH ×4 (00:12→23:54)
[2021-12-28] MEDS: HYDROMORPHONE HCL/PF 2MG/ML CPJ IV PRN ×3 (01:35→20:59)
[2021-12-28 05:28] LABS: BASOPHILS % 0.4 % (0.0-2.0); EOSINOPHILS % 1.3 % (0.0-5.0); HEMATOCRIT. 25.4 % (42.0-52.0); HEMOGLOBIN. 8.3 g/dL (14.0-18.0); LYMPHOCYTES % 9.4 % (20.0-50.0); MEAN CORPUSCULAR HEMOGLOBIN 28.8 pg (28.0-32.0); MEAN CORPUSCULAR VOLUME 88.5 fL (80.0-94.0); MEAN PLATELET VOLUME 7.7 fl (7.4-10.4); MONOCYTES % 7.5 % (2.0-8.0); NEUTROPHILS % 81.4 % (40.0-76.0); PLATELET 492 x1000/uL (130-400); RED BLOOD CELL COUNT 2.87 mill/uL (4.7-6.1); RED CELL DISTRIBUTION WIDTH 14.3 % (11.6-14.6)
[2021-12-28] MEDS: GABAPENTIN 300MG CAPSULE PO SCH ×3 (05:34→22:00)
[2021-12-28] MEDS: SPIRONOLACTONE 25MG TABLET PO SCH ×2 (05:36→18:00)
[2021-12-28 05:42] LABS: CHLORIDE 105 mEq/L (98-107)
[2021-12-28 05:49] LABS: PHOSPHORUS 3.2 mg/dL (2.5-4.9)
[2021-12-28] MEDS: BLOOD SUGAR DIAGNOSTIC STRIP TEST SCH ×4 (07:29→21:00)
[2021-12-28] MEDS ORDERED: POTASSIUM CHLORIDE 20MEQ TABLET SR PO NR (07:45)
[2021-12-28] MEDS: DOCUSATE SODIUM 250MG CAPSULE PO SCH (08:00)
[2021-12-28] MEDS: INSULIN LISPRO 100 UNITS/ML SUBCUT SCH ×4 (08:03→21:00)
[2021-12-28] MEDS: PANTOPRAZOLE 40MG DR TABLET PO SCH (08:03)
[2021-12-28] MEDS: POTASSIUM CHLORIDE 20MEQ TABLET SR PO SCH (09:54)
[2021-12-28] MEDS: FUROSEMIDE 40MG/4ML VIAL IVP SCH (09:54)
[2021-12-28] MEDS: INSULIN GLARGINE 100 UNITS/ML SUBCUT SCH (10:13)
[2021-12-28] MEDS: GUAIFENESIN 200MG/10ML SUGAR FREE UDC PO PRN (20:56)
[2021-12-29] MEDS: PANTOPRAZOLE 40MG DR TABLET PO SCH (06:11)
[2021-12-29] MEDS: GABAPENTIN 300MG CAPSULE PO SCH ×3 (06:31→21:19)
[2021-12-29] MEDS: SPIRONOLACTONE 25MG TABLET PO SCH ×2 (06:31→17:32)
[2021-12-29] MEDS: HYDROMORPHONE HCL/PF 2MG/ML CPJ IV PRN ×3 (06:37→20:20)
[2021-12-29 06:39] LABS: HEMATOCRIT 28.1 % (42.0-52.0); HEMOGLOBIN 9.3 g/dL (14.0-18.0); MEAN CORPUSCULAR HEMOGLOBIN 29.3 pg (28.0-32.0); MEAN CORPUSCULAR VOLUME 88.2 fL (80.0-94.0); PLATELET 518 x1000/uL (130-400); RED BLOOD CELL COUNT 3.19 mill/uL (4.7-6.1)
[2021-12-29 07:05] LABS: CHLORIDE 101 mEq/L (98-107)
[2021-12-29] MEDS: BLOOD SUGAR DIAGNOSTIC STRIP TEST SCH ×4 (07:06→21:19)
[2021-12-29 08:00] VITALS: BP 152/62
[2021-12-29] MEDS: INSULIN LISPRO 100 UNITS/ML SUBCUT SCH ×4 (08:44→21:18)
[2021-12-29] MEDS: FUROSEMIDE 40MG/4ML VIAL IVP SCH (10:11)
[2021-12-29] MEDS: CEFAZOLIN 2,000 MG in DEXT 5% WATER 100 ML IV SCH ×3 (10:13→23:56)
[2021-12-29] MEDS: METHOCARBAMOL 500MG TABLET PO PRN ×2 (10:14→17:32)
[2021-12-29] MEDS: DOCUSATE SODIUM 250MG CAPSULE PO SCH (10:14)
[2021-12-29] MEDS: INSULIN GLARGINE 100 UNITS/ML SUBCUT SCH (10:19)
[2021-12-29] MEDS: POTASSIUM CHLORIDE 20MEQ TABLET SR PO SCH (10:19)
[2021-12-29 15:24] LABS: BASOPHILS % 0.4 % (0.0-2.0); HEMATOCRIT. 27.5 % (42.0-52.0); HEMOGLOBIN. 9.1 g/dL (14.0-18.0); LYMPHOCYTES % 9.2 % (20.0-50.0); MEAN CORPUSCULAR HEMOGLOBIN 29.9 pg (28.0-32.0); MEAN CORPUSCULAR VOLUME 90.2 fL (80.0-94.0); MEAN PLATELET VOLUME 7.3 fl (7.4-10.4); MONOCYTES % 5.9 % (2.0-8.0); NEUTROPHILS % 83.5 % (40.0-76.0); PLATELET 488 x1000/uL (130-400); RED BLOOD CELL COUNT 3.05 mill/uL (4.7-6.1); RED CELL DISTRIBUTION WIDTH 14.3 % (11.6-14.6)
[2021-12-29 16:00] VITALS: BP 145/74
[2021-12-29] MEDS ORDERED: IPRATROPIUM/ALBUTEROL 0.5-3(2.5)MG/3ML NEB HHN PRN (16:15)
[2021-12-29 16:20] LABS: CHLORIDE 103 mEq/L (98-107)
[2021-12-29 20:00] VITALS: BP 112/37
[2021-12-29] MEDS: GUAIFENESIN 200MG/10ML SUGAR FREE UDC PO PRN (21:48)
[2021-12-29] MEDS: ACETAMINOPHEN 325MG TABLET PO PRN (21:48)
[2021-12-30] VITALS: BP 133/37
[2021-12-30 04:00] VITALS: BP 140/92
[2021-12-30] MEDS: GABAPENTIN 300MG CAPSULE PO SCH ×3 (05:23→21:16)
[2021-12-30] MEDS: SPIRONOLACTONE 25MG TABLET PO SCH ×2 (05:23→21:18)
[2021-12-30] MEDS: GUAIFENESIN 200MG/10ML SUGAR FREE UDC PO PRN (05:24)
[2021-12-30] MEDS: PANTOPRAZOLE 40MG DR TABLET PO SCH (06:30)
[2021-12-30] MEDS: BLOOD SUGAR DIAGNOSTIC STRIP TEST SCH ×4 (06:30→21:00)
[2021-12-30] MEDS: HYDROMORPHONE HCL/PF 2MG/ML CPJ IV PRN ×4 (06:35→21:20)
[2021-12-30 08:00] VITALS: BP 120/39
[2021-12-30] MEDS: FUROSEMIDE 40MG TABLET PO SCH (08:44)
[2021-12-30] MEDS: DOCUSATE SODIUM 250MG CAPSULE PO SCH (08:44)
[2021-12-30] MEDS: CEFAZOLIN 2,000 MG in DEXT 5% WATER 100 ML IV SCH ×2 (08:44→15:43)
[2021-12-30] MEDS: POTASSIUM CHLORIDE 20MEQ TABLET SR PO SCH (08:44)
[2021-12-30] MEDS: INSULIN LISPRO 100 UNITS/ML SUBCUT SCH ×3 (09:28→17:50)
[2021-12-30] MEDS: INSULIN GLARGINE 100 UNITS/ML SUBCUT SCH (11:13)
[2021-12-30 12:00] VITALS: BP 114/52
[2021-12-30 16:00] VITALS: BP 133/62
[2021-12-30] MEDS ORDERED: NALOXONE HCL 0.4MG/ML VIAL IV PRN (18:15)
[2021-12-30 20:00] VITALS: BP 113/51
[2021-12-31] VITALS (7 sets, daily range): BP systolic 121–130; BP diastolic 47–68
[2021-12-31] MEDS: CEFAZOLIN 2,000 MG in DEXT 5% WATER 100 ML IV SCH ×3 (00:41→23:49)
[2021-12-31] MEDS: HYDROMORPHONE HCL/PF 2MG/ML CPJ IV PRN ×5 (03:30→22:30)
[2021-12-31] MEDS: PANTOPRAZOLE 40MG DR TABLET PO SCH (06:28)
[2021-12-31] MEDS: GABAPENTIN 300MG CAPSULE PO SCH ×3 (06:28→21:21)
[2021-12-31] MEDS: SPIRONOLACTONE 25MG TABLET PO SCH ×2 (06:29→18:34)
[2021-12-31 07:22] LABS: HEMATOCRIT 24.1 % (42.0-52.0); MEAN CORPUSCULAR HEMOGLOBIN 29.2 pg (28.0-32.0); MEAN CORPUSCULAR VOLUME 88.3 fL (80.0-94.0); PLATELET 443 x1000/uL (130-400); RED BLOOD CELL COUNT 2.73 mill/uL (4.7-6.1)
[2021-12-31 07:40] LABS: CHLORIDE 100 mEq/L (98-107)
[2021-12-31] MEDS: INSULIN LISPRO 100 UNITS/ML SUBCUT SCH ×5 (07:50→20:49)
[2021-12-31] MEDS: FUROSEMIDE 40MG TABLET PO SCH (08:49)
[2021-12-31] MEDS: DOCUSATE SODIUM 250MG CAPSULE PO SCH (08:49)
[2021-12-31] MEDS: POTASSIUM CHLORIDE 20MEQ TABLET SR PO SCH (08:50)
[2021-12-31] MEDS: INSULIN GLARGINE 100 UNITS/ML SUBCUT SCH (10:00)
[2021-12-31 12:29] LABS: TOTAL IRON BINDING CAPACITY 109 ug/dL (250-450)
[2021-12-31 12:36] LABS: FERRITIN 358 ng/mL (22-322)
[2021-12-31] MEDS: BLOOD SUGAR DIAGNOSTIC STRIP TEST SCH ×3 (13:03→20:42)
[2022-01-01 04:00] VITALS: BP 123/47
[2022-01-01] MEDS: HYDROMORPHONE HCL/PF 2MG/ML CPJ IV PRN ×3 (05:48→18:51)
[2022-01-01] MEDS: SPIRONOLACTONE 25MG TABLET PO SCH ×2 (05:56→18:00)
[2022-01-01] MEDS: GABAPENTIN 300MG CAPSULE PO SCH ×3 (05:56→21:29)
[2022-01-01] MEDS: BLOOD SUGAR DIAGNOSTIC STRIP TEST SCH ×4 (06:34→21:00)
[2022-01-01] MEDS: PANTOPRAZOLE 40MG DR TABLET PO SCH (06:34)
[2022-01-01 06:36] VITALS: BP 121/47
[2022-01-01] MEDS: INSULIN LISPRO 100 UNITS/ML SUBCUT SCH ×4 (07:50→21:28)
[2022-01-01 08:00] VITALS: BP 134/39
[2022-01-01] MEDS: CEFAZOLIN 2,000 MG in DEXT 5% WATER 100 ML IV SCH ×2 (08:00→16:00)
[2022-01-01] MEDS: DOCUSATE SODIUM 250MG CAPSULE PO SCH (09:00)
[2022-01-01] MEDS: FUROSEMIDE 40MG TABLET PO SCH (09:45)
[2022-01-01] MEDS: POTASSIUM CHLORIDE 20MEQ TABLET SR PO SCH (09:45)
[2022-01-01] MEDS: INSULIN GLARGINE 100 UNITS/ML SUBCUT SCH (10:42)
[2022-01-01 10:47] LABS: HEMATOCRIT 24.8 % (42.0-52.0); HEMOGLOBIN 8.2 g/dL (14.0-18.0); PLATELET 405 x1000/uL (130-400); RED BLOOD CELL COUNT 2.82 mill/uL (4.7-6.1); RED CELL DISTRIBUTION WIDTH 13.8 % (11.6-14.6)
[2022-01-01 10:56] LABS: CHLORIDE 98 mEq/L (98-107)
[2022-01-01] MEDS ORDERED: LOPERAMIDE HCL 2MG CAPSULE PO PRN (11:45)
[2022-01-01 12:00] VITALS: BP 141/30
[2022-01-01 16:00] VITALS: BP 125/52
[2022-01-02] MEDS: HYDROMORPHONE HCL/PF 2MG/ML CPJ IV PRN ×4 (01:52→17:45)
[2022-01-02] MEDS: SPIRONOLACTONE 25MG TABLET PO SCH ×2 (05:34→17:45)
[2022-01-02] MEDS: GABAPENTIN 300MG CAPSULE PO SCH ×3 (05:35→21:48)
[2022-01-02] MEDS: BLOOD SUGAR DIAGNOSTIC STRIP TEST SCH ×4 (06:35→20:18)
[2022-01-02] MEDS: PANTOPRAZOLE 40MG DR TABLET PO SCH (06:35)
[2022-01-02 08:00] VITALS: BP 131/56
[2022-01-02] MEDS: CEFAZOLIN 2,000 MG in DEXT 5% WATER 100 ML IV SCH ×5 (08:43→23:14)
[2022-01-02] MEDS: DOCUSATE SODIUM 250MG CAPSULE PO SCH (08:43)
[2022-01-02] MEDS: POTASSIUM CHLORIDE 20MEQ TABLET SR PO SCH (08:43)
[2022-01-02] MEDS: INSULIN LISPRO 100 UNITS/ML SUBCUT SCH ×4 (08:45→20:18)
[2022-01-02] MEDS: FUROSEMIDE 40MG TABLET PO SCH (08:45)
[2022-01-02] MEDS: INSULIN GLARGINE 100 UNITS/ML SUBCUT SCH (11:07)
[2022-01-02 12:13] LABS: HEMATOCRIT 22.9 % (42.0-52.0); MEAN CORPUSCULAR HEMOGLOBIN 30.7 pg (28.0-32.0); MEAN CORPUSCULAR VOLUME 87.9 fL (80.0-94.0); PLATELET 333 x1000/uL (130-400); RED CELL DISTRIBUTION WIDTH 13.8 % (11.6-14.6)
[2022-01-02 12:23] LABS: CHLORIDE 97 mEq/L (98-107)
[2022-01-02] MEDS: HYDROCODONE/ACETAMINOPHEN 10/325MG TABLET PO PRN ×2 (13:27→21:49)
[2022-01-02 16:00] VITALS: BP 129/61
[2022-01-02 20:00] VITALS: BP 149/72
[2022-01-03] MEDS: HYDROMORPHONE HCL/PF 2MG/ML CPJ IV PRN ×2 (05:13→14:45)
[2022-01-03] MEDS: GABAPENTIN 300MG CAPSULE PO SCH ×3 (05:13→21:17)
[2022-01-03] MEDS: SPIRONOLACTONE 25MG TABLET PO SCH ×2 (05:13→17:53)
[2022-01-03] MEDS: PANTOPRAZOLE 40MG DR TABLET PO SCH ×2 (07:19→10:31)
[2022-01-03] MEDS: BLOOD SUGAR DIAGNOSTIC STRIP TEST SCH ×4 (07:19→20:32)
[2022-01-03 08:00] VITALS: BP 141/71
[2022-01-03 10:30] LABS: HEMATOCRIT 24.4 % (42.0-52.0); HEMOGLOBIN 8.3 g/dL (14.0-18.0); MEAN CORPUSCULAR HEMOGLOBIN 29.5 pg (28.0-32.0); PLATELET 402 x1000/uL (130-400); RED CELL DISTRIBUTION WIDTH 14.1 % (11.6-14.6)
[2022-01-03] MEDS: DOCUSATE SODIUM 250MG CAPSULE PO SCH (10:31)
[2022-01-03] MEDS: POTASSIUM CHLORIDE 20MEQ TABLET SR PO SCH (10:31)
[2022-01-03] MEDS: FUROSEMIDE 40MG TABLET PO SCH (10:31)
[2022-01-03] MEDS: HYDROCODONE/ACETAMINOPHEN 10/325MG TABLET PO PRN ×2 (10:32→20:21)
[2022-01-03] MEDS: CEFAZOLIN 2,000 MG in DEXT 5% WATER 100 ML IV SCH ×3 (10:35→23:31)
[2022-01-03 10:38] LABS: CHLORIDE 102 mEq/L (98-107)
[2022-01-03] MEDS: INSULIN LISPRO 100 UNITS/ML SUBCUT SCH ×4 (10:53→21:18)
[2022-01-03] MEDS: INSULIN GLARGINE 100 UNITS/ML SUBCUT SCH (10:53)
[2022-01-03 11:53] VITALS: BP 139/70
[2022-01-03 16:16] VITALS: BP 123/78
[2022-01-03 20:00] VITALS: BP 126/60
[2022-01-04 00:05] VITALS: BP 127/59
[2022-01-04] MEDS: HYDROMORPHONE HCL/PF 2MG/ML CPJ IV PRN ×2 (01:19→10:24)
[2022-01-04 04:02] VITALS: BP 117/30
[2022-01-04] MEDS: GABAPENTIN 300MG CAPSULE PO SCH ×3 (06:11→21:38)
[2022-01-04] MEDS: HYDROCODONE/ACETAMINOPHEN 10/325MG TABLET PO PRN ×3 (06:11→21:45)
[2022-01-04] MEDS: SPIRONOLACTONE 25MG TABLET PO SCH ×2 (06:11→18:09)
[2022-01-04] MEDS: BLOOD SUGAR DIAGNOSTIC STRIP TEST SCH ×4 (06:23→21:39)
[2022-01-04] MEDS: INSULIN LISPRO 100 UNITS/ML SUBCUT SCH ×4 (07:34→21:39)
[2022-01-04 08:00] VITALS: BP 133/66
[2022-01-04] MEDS: DOCUSATE SODIUM 250MG CAPSULE PO SCH (09:00)
[2022-01-04] MEDS: FUROSEMIDE 40MG TABLET PO SCH (10:22)
[2022-01-04] MEDS: POTASSIUM CHLORIDE 20MEQ TABLET SR PO SCH (10:23)
[2022-01-04] MEDS: CEFAZOLIN 2,000 MG in DEXT 5% WATER 100 ML IV SCH ×3 (10:23→23:20)
[2022-01-04] MEDS: INSULIN GLARGINE 100 UNITS/ML SUBCUT SCH (10:46)
[2022-01-04] MEDS ORDERED: HYDROCODONE/ACETAMINOPHEN 5/325MG TABLET PO PRN (11:00)
[2022-01-04 11:31] LABS: HEMATOCRIT 21.8 % (42.0-52.0); HEMOGLOBIN 7.4 g/dL (14.0-18.0); MEAN CORPUSCULAR HEMOGLOBIN 29.7 pg (28.0-32.0); PLATELET 364 x1000/uL (130-400); RED CELL DISTRIBUTION WIDTH 14.3 % (11.6-14.6)
[2022-01-04 11:36] LABS: CHLORIDE 103 mEq/L (98-107)
[2022-01-04 12:00] VITALS: BP 124/58
[2022-01-04 16:00] VITALS: BP 116/66
[2022-01-04] MEDS: HYDROMORPHONE HCL 4MG TABLET PO PRN (18:10)
[2022-01-04 20:00] VITALS: BP 153/75
[2022-01-05] VITALS: BP 143/71
[2022-01-05 04:00] VITALS: BP 117/54
[2022-01-05] MEDS: SPIRONOLACTONE 25MG TABLET PO SCH ×2 (05:25→18:30)
[2022-01-05] MEDS: HYDROMORPHONE HCL 4MG TABLET PO PRN ×2 (05:29→16:33)
[2022-01-05] MEDS: BLOOD SUGAR DIAGNOSTIC STRIP TEST SCH ×4 (06:38→21:11)
[2022-01-05] MEDS: PANTOPRAZOLE 40MG DR TABLET PO SCH (06:38)
[2022-01-05] MEDS: GABAPENTIN 300MG CAPSULE PO SCH ×3 (06:42→21:04)
[2022-01-05 07:06] LABS: HEMATOCRIT 22.5 % (42.0-52.0); HEMOGLOBIN 7.6 g/dL (14.0-18.0); MEAN CORPUSCULAR HEMOGLOBIN 29.1 pg (28.0-32.0); MEAN CORPUSCULAR VOLUME 86.2 fL (80.0-94.0); PLATELET 369 x1000/uL (130-400); RED BLOOD CELL COUNT 2.61 mill/uL (4.7-6.1)
[2022-01-05 07:29] LABS: CHLORIDE 101 mEq/L (98-107)
[2022-01-05 08:00] VITALS: BP 129/44
[2022-01-05] MEDS: DOCUSATE SODIUM 250MG CAPSULE PO SCH (09:00)
[2022-01-05] MEDS: CEFAZOLIN 2,000 MG in DEXT 5% WATER 100 ML IV SCH ×3 (10:21→23:27)
[2022-01-05] MEDS: FUROSEMIDE 40MG TABLET PO SCH (10:21)
[2022-01-05] MEDS: POTASSIUM CHLORIDE 20MEQ TABLET SR PO SCH (10:21)
[2022-01-05] MEDS: HYDROCODONE/ACETAMINOPHEN 10/325MG TABLET PO PRN ×2 (10:22→21:04)
[2022-01-05] MEDS: INSULIN LISPRO 100 UNITS/ML SUBCUT SCH ×4 (10:38→21:00)
[2022-01-05] MEDS: INSULIN GLARGINE 100 UNITS/ML SUBCUT SCH (10:38)
[2022-01-05 12:00] VITALS: BP 129/56
[2022-01-05 16:00] VITALS: BP 129/60
[2022-01-06] MEDS: HYDROMORPHONE HCL 4MG TABLET PO PRN ×3 (01:01→17:02)
[2022-01-06 04:00] VITALS: BP 112/65
[2022-01-06] MEDS: GABAPENTIN 300MG CAPSULE PO SCH ×3 (06:09→21:29)
[2022-01-06] MEDS: SPIRONOLACTONE 25MG TABLET PO SCH ×2 (06:10→21:28)
[2022-01-06] MEDS: PANTOPRAZOLE 40MG DR TABLET PO SCH (06:10)
[2022-01-06] MEDS: HYDROCODONE/ACETAMINOPHEN 10/325MG TABLET PO PRN ×2 (06:11→21:31)
[2022-01-06] MEDS: BLOOD SUGAR DIAGNOSTIC STRIP TEST SCH ×3 (07:20→21:46)
[2022-01-06 08:00] VITALS: BP 122/54
[2022-01-06] MEDS: CEFAZOLIN 2,000 MG in DEXT 5% WATER 100 ML IV SCH ×2 (08:00→17:02)
[2022-01-06] MEDS: DOCUSATE SODIUM 250MG CAPSULE PO SCH (09:00)
[2022-01-06] MEDS: INSULIN GLARGINE 100 UNITS/ML SUBCUT SCH (10:00)
[2022-01-06] MEDS: FUROSEMIDE 40MG TABLET PO SCH (11:53)
[2022-01-06] MEDS: POTASSIUM CHLORIDE 20MEQ TABLET SR PO SCH (11:53)
[2022-01-06 12:00] VITALS: BP 128/62
[2022-01-06] MEDS: INSULIN LISPRO 100 UNITS/ML SUBCUT SCH ×2 (12:50→21:46)
[2022-01-06 16:00] VITALS: BP 119/60
[2022-01-06 16:26] LABS: HEMATOCRIT 22.5 % (42.0-52.0); HEMOGLOBIN 7.7 g/dL (14.0-18.0); MEAN CORPUSCULAR HEMOGLOBIN 29.7 pg (28.0-32.0); MEAN CORPUSCULAR VOLUME 86.9 fL (80.0-94.0); PLATELET 336 x1000/uL (130-400); RED BLOOD CELL COUNT 2.59 mill/uL (4.7-6.1); RED CELL DISTRIBUTION WIDTH 13.8 % (11.6-14.6)
[2022-01-06 16:40] LABS: CHLORIDE 100 mEq/L (98-107)
[2022-01-06 20:00] VITALS: BP 129/58
[2022-01-07] VITALS (8 sets, daily range): BP systolic 101–150; BP diastolic 44–90
[2022-01-07] MEDS: CEFAZOLIN 2,000 MG in DEXT 5% WATER 100 ML IV SCH ×2 (01:35→09:25)
[2022-01-07] MEDS: HYDROMORPHONE HCL 4MG TABLET PO PRN ×4 (01:36→20:42)
[2022-01-07] MEDS: SPIRONOLACTONE 25MG TABLET PO SCH (06:16)
[2022-01-07] MEDS: PANTOPRAZOLE 40MG DR TABLET PO SCH (06:16)
[2022-01-07] MEDS: GABAPENTIN 300MG CAPSULE PO SCH (06:16)
[2022-01-07 07:10] LABS: BASOPHILS % 0.9 % (0.0-2.0); EOSINOPHILS % 3.3 % (0.0-5.0); HEMATOCRIT. 21.7 % (42.0-52.0); HEMOGLOBIN. 7.2 g/dL (14.0-18.0); LYMPHOCYTES % 11.6 % (20.0-50.0); MEAN CORPUSCULAR HEMOGLOBIN 29.2 pg (28.0-32.0); MEAN CORPUSCULAR VOLUME 87.4 fL (80.0-94.0); MONOCYTES % 6.6 % (2.0-8.0); NEUTROPHILS % 77.6 % (40.0-76.0); RED BLOOD CELL COUNT 2.48 mill/uL (4.7-6.1); RED CELL DISTRIBUTION WIDTH 13.6 % (11.6-14.6)
[2022-01-07] MEDS: BLOOD SUGAR DIAGNOSTIC STRIP TEST SCH ×3 (07:20→17:20)
[2022-01-07 07:33] LABS: CHLORIDE 99 mEq/L (98-107)
[2022-01-07] MEDS: DOCUSATE SODIUM 250MG CAPSULE PO SCH (09:00)
[2022-01-07] MEDS: POTASSIUM CHLORIDE 20MEQ TABLET SR PO SCH (09:20)
[2022-01-07] MEDS: FUROSEMIDE 40MG TABLET PO SCH (09:25)
[2022-01-07] MEDS: INSULIN GLARGINE 100 UNITS/ML SUBCUT SCH (12:42)
[2022-01-07] MEDS ORDERED: POTA-204 PO (15:39)
[2022-01-07] MEDS ORDERED: METH-773 PO (15:39)
[2022-01-07] MEDS ORDERED: SPIR25TA PO (15:39)
[2022-01-07] MEDS ORDERED: FURO40TA5 PO (15:39)
[2022-01-07] MEDS ORDERED: IMOD PO (15:39)
[2022-01-07] MEDS ORDERED: GABA-532 PO (15:39)
[2022-01-07] MEDS ORDERED: CEFT2VIA13 IV (15:40)
[2022-01-07] MEDS ORDERED: LANTUSUD SUBCUT (15:41)
== END 2022-01-07 21:14 | DRG 710 ==
LOC: ER 09:54 → EDBEDREQSVC 13:00 → EDBEDREQ 13:00 → EDBEDREQTM 13:00 → 5EST 14:54 → EDBEDREQTM 16:08 → EDBEDREQ 16:08 → EDBEDREQSVC 16:08 → MICUSO 12-18 15:56 → 5EST 12-22 18:50 → 6EST 12-28 08:34
PROVIDERS: ADMIT Hospitalist; ATTEND Hospitalist
PROC: 009U0ZZ Drainage of Spinal Canal, Open Approach (ICD-10-PCS; principal; 2021-12-18)
PROC: 5A1935Z Respiratory Ventilation, Less than 24 Consecutive Hours (ICD-10-PCS; 2021-12-18)
PROC: 00NX0ZZ Release Thoracic Spinal Cord, Open Approach (ICD-10-PCS; 2021-12-18)
PROC: 4A11X4G Monitoring of Peripheral Nervous Electrical Activity, Intraoperative, External Approach (ICD-10-PCS; 2021-12-18)
PROC: 02HV33Z Insertion of Infusion Device into Superior Vena Cava, Percutaneous Approach (ICD-10-PCS; 2021-12-20)
PROC: B548ZZA Ultrasonography of Superior Vena Cava, Guidance (ICD-10-PCS; 2021-12-20)
PROC: B01B1ZZ Fluoroscopy of Spinal Cord using Low Osmolar Contrast (ICD-10-PCS; 2021-12-20)
PROC: 30233N1 Transfusion of Nonautologous Red Blood Cells into Peripheral Vein, Percutaneous Approach (ICD-10-PCS; 2021-12-24)
DX: A41.01 Sepsis due to Methicillin susceptible Staphylococcus aureus (principal); J96.01 Acute respiratory failure with hypoxia; I76 Septic arterial embolism; E11.01 Type 2 diabetes mellitus with hyperosmolarity with coma; G06.1 Intraspinal abscess and granuloma; N17.0 Acute kidney failure with tubular necrosis; J81.0 Acute pulmonary edema; E43 Unspecified severe protein-calorie malnutrition; G92.8 Other toxic encephalopathy; R65.21 Severe sepsis with septic shock; D63.1 Anemia in chronic kidney disease; E83.41 Hypermagnesemia; E87.1 Hypo-osmolality and hyponatremia; G82.20 Paraplegia, unspecified; E87.20 Acidosis, unspecified; E11.65 Type 2 diabetes mellitus with hyperglycemia; R07.9 Chest pain, unspecified; N17.9 Acute kidney failure, unspecified; E07.81 Sick-euthyroid syndrome; E87.0 Hyperosmolality and hypernatremia; Z20.822 Contact with and (suspected) exposure to COVID-19; E11.22 Type 2 diabetes mellitus with diabetic chronic kidney disease; E11.51 Type 2 diabetes mellitus with diabetic peripheral angiopathy without gangrene; E86.0 Dehydration; R74.01 Elevation of levels of liver transaminase levels; N39.0 Urinary tract infection, site not specified; E87.6 Hypokalemia; K59.03 Drug induced constipation; S30.0XXA Contusion of lower back and pelvis, initial encounter; E11.69 Type 2 diabetes mellitus with other specified complication; M46.24 Osteomyelitis of vertebra, thoracic region; M46.26 Osteomyelitis of vertebra, lumbar region; M79.89 Other specified soft tissue disorders; N50.89 Other specified disorders of the male genital organs; K68.12 Psoas muscle abscess; N13.9 Obstructive and reflux uropathy, unspecified; F32.A Depression, unspecified; F10.10 Alcohol abuse, uncomplicated; G83.4 Cauda equina syndrome; I12.9 Hypertensive chronic kidney disease with stage 1 through stage 4 chronic kidney disease, or unspecified chronic kidney disease; N18.9 Chronic kidney disease, unspecified; I27.20 Pulmonary hypertension, unspecified; I16.0 Hypertensive urgency; J98.11 Atelectasis; Z79.4 Long term (current) use of insulin; Z89.511 Acquired absence of right leg below knee; Z89.512 Acquired absence of left leg below knee; Z89.611 Acquired absence of right leg above knee; Z68.35 Body mass index [BMI] 35.0-35.9, adult; X58.XXXA Exposure to other specified factors, initial encounter; Y93.89 Activity, other specified; Y92.89 Other specified places as the place of occurrence of the external cause; Y99.8 Other external cause status
CPT/HCPCS: 36415; 36573; 36600; 71045; 72070; 72128; 72131; 72146; 72148; 74018; 74176; 76000; 76700; 80048; 80053; 80061; 80202; 81003; 82010; 82040; 82375; 82533; 82607; 82728; 82746; 82805; 82962; 83036; 83540; 83550; 83605; 83735; 83880; 83930; 84100; 84132; 84134; 84145; 84153; 84295; 84439; 84443; 84478; 84481; 84484; 85025; 85027; 85651; 86850; 86900; 86920; 87070; 87075; 87077; 87186; 87426; 88304; 90732; 92610; 93005; 93306; 93923; 93970; 94003; 94640; 95925; 95926; 95928; 95929; 97110; 97112; 97162; 97166; 97530; 97535; 99291; A6261; A9577; C1725; C9803; J0690; J1100; J1170; J1265; J1580; J1650; J1815; J1940; J1956; J2250; J2270; J2370; J2405; J2543; J2704; J2710; J3010; J3370; J3475; J3480; J3490; J7030; J7042; J7050; J7060; P9016; A4315; G0103